=== PATIENT | male | born 1985 ===

== ENCOUNTER 2021-07-14 20:44 | Emergency (ER) | payer SELFPAY ==
[2021-07-14 20:51] VITALS: BP 136/87
[2021-07-14] MEDS ORDERED: cephALEXin 500 MG CAP PO ONE (21:47)
[2021-07-14] MEDS ORDERED: HYDROcodone/ACETAMINOPHEN 5-325 MG TAB PO ONE (21:47)
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
--- NOTE | 2021-07-14 22:59 | XRay Report ---
RIGHT FOOT 3 VIEWS 2201 INDICATION: crush COMPARISON: None available. FINDINGS: The proximal larynx of the great toe distally shows an irregular fracture with prominent an gulation and displacement dorsally. The next of the second and third metatarsals show mildly complex fractures with slight lateral angulation at the third metatarsal site but without significant displac ement. No dislocation is seen. Mild hallux valgus is noted. Mild tarsal and ankle degenerative change s are seen. Signer Name: Julian Wood MD Signed: 07/14/2021 10:54 PM Workstation Name: [id number]
== END 2021-07-15 00:10 | disposition home or self-care (01) ==
LOC: ED 20:44
DX: S92.331A Displaced fracture of third metatarsal bone, right foot, initial encounter for closed fracture (principal); S92.911A Unspecified fracture of right toe(s), initial encounter for closed fracture; Z88.2 Allergy status to sulfonamides; X58.XXXA Exposure to other specified factors, initial encounter; Y93.89 Activity, other specified; Y92.89 Other specified places as the place of occurrence of the external cause; Y99.8 Other external cause status
CPT/HCPCS: 99283

== ENCOUNTER 2021-10-03 08:24 | Outpatient (CLI) | payer OTHER ==
[2021-10-03] MEDS ORDERED: LIDOCAINE (4%) 40 MG/ML TOPICAL SOLN 50 ML BOTTLE TP ONE (08:33)
== END 2021-10-03 08:25 | disposition home or self-care (01) ==
LOC: WOUND 08:24
PROVIDERS: ATTEND Surgery
DX: S97.111A Crushing injury of right great toe, initial encounter (principal); M86.371 Chronic multifocal osteomyelitis, right ankle and foot; I10 Essential (primary) hypertension; D75.A Glucose-6-phosphate dehydrogenase (G6PD) deficiency without anemia; F17.210 Nicotine dependence, cigarettes, uncomplicated; X58.XXXA Exposure to other specified factors, initial encounter; Y93.89 Activity, other specified; Y92.89 Other specified places as the place of occurrence of the external cause; Y99.8 Other external cause status
CPT/HCPCS: 99215; G0463